=== PATIENT | male | born 1995 | race Caucasian/White ===

== ENCOUNTER 2017-04-22 09:36 | Emergency (ER) | payer OTHER ==
[~2017-04-22] VITALS: Ht 177.8 cm; Wt 79.0 kg
[2017-04-22] MEDS ORDERED: METOCLOPRAMIDE 10 MG TAB PO ONE (10:45)
[2017-04-22] MEDS ORDERED: ACETAMINOPHEN 325 MG TAB PO ONE (10:45)
[2017-04-22] MEDS ORDERED: MOBI7.5T10 PO (11:30)
[2017-04-22] MEDS ORDERED: ZANA4TAB PO (11:30)
--- NOTE | 2017-04-22 11:31 | REP ---
REASON: Trauma. COMPARISON: 11/18/2015. There is no change in the appearance of the bony architecture of the maxillofacial region. There is no acute fracture. Note is again made of a small mucous retention cyst and a small amount of mucosal thickening right maxillary sinus status quo. There is new soft tissue density in the posterior sphenoid sinus on the right. There is an unchanged small mucous retention cyst adherent to the lateral wall of the left maxillary sinus. No other abnormalities are noted. IMPRESSION: 1. No acute fracture. 2. Mucous retention cyst with mucosal thickening maxillary antra and sphenoid sinus posteriorly on the right as described above. Signed by Sonido Bruce DO 04/22/2017 12:07 P
--- NOTE | 2017-04-22 11:32 | REP ---
CT BRAIN WITHOUT CONTRAST: REASON: Trauma. COMPARISON: 11/18/2015 TECHNIQUE: 4.5 mm contiguous transaxial sections were obtained from the skull base to the cerebral convexities with thin cuts through the posterior fossa without the administration of intravenous contrast. FINDINGS: The ventricles and sulci are consistent with the patient's age. There are no extra-axial fluid collections. There is no mass effect. The deep cerebral white matter is consistent with the patient's age. The orbital and petrous structures , cerebellopontine angles, and posterior fossa are unremarkable. The sella turcica, cavernous, and paracavernous structures are essentially unremarkable. The visualized portions of the paranasal sinuses and mastoid air cells are clear. Images of the skull base show no gross abnormality. IMPRESSION: Essentially unremarkable CT examination of the brain. There has been no significant change from the prior exam. Signed by Sonido Bruce DO 04/22/2017 12:07 P
[2017-04-22] MEDS ORDERED: NORCO, ANEXSIA 5/325MG TABLET (HYDROcodone/ACETAMINOPHEN) PO ONE (11:45)
[2017-04-22 11:49] VITALS: BP 144/83
--- NOTE | 2017-04-22 11:49 | REP ---
REASON: Pain in the neck after trauma. COMPARISON: None. Vertebral body height and alignment is within normal limits. The disc spaces are symmetric and well maintained. The facet joints are well aligned bilaterally. There is no evidence of a cervical spine fracture. There is no evidence of abnormal paraspinal soft tissue swelling. IMPRESSION: Unremarkable exam. Signed by Sonido Bruce DO 04/22/2017 12:07 P
== END 2017-04-22 11:51 | disposition home or self-care (01) ==
LOC: M ED 11:03
DX: S00.90XA Unspecified superficial injury of unspecified part of head, initial encounter (principal); M54.2 Cervicalgia; S50.811A Abrasion of right forearm, initial encounter; Y04.0XXA Assault by unarmed brawl or fight, initial encounter; Y92.511 Restaurant or cafe as the place of occurrence of the external cause; Y93.89 Activity, other specified; Y99.9 Unspecified external cause status

== ENCOUNTER 2017-05-31 02:08 | Emergency (ER) | payer OTHER ==
[~2017-05-31] VITALS: Ht 175.3 cm; Wt 81.8 kg
[~2017-05-31 02:08] MED LIST: MOBI4TAB PO; ZANA4TAB PO
[2017-05-31 02:22] VITALS: BP 143/92
[2017-05-31] MEDS ORDERED: NORCOTAB PO (03:58)
[2017-05-31] MEDS ORDERED: NORCO 5/325MG TABLET (BULK FOR ED) PO ONE (04:00)
--- NOTE | 2017-05-31 04:18 | REP ---
Clinical: Trauma. Technique: AP, lateral, bilateral oblique views of the right foot. Findings: There is a comminuted crush injury involving the first distal phalanx/terminal tuft. The interphalangeal joint appears intact and maintained. No obvious subcutaneous emphysema or radiodense foreign body appreciated. Impression: Comminuted crush fracture involving the first toe distal phalanx. Signed by Monico Walsh MD 05/31/2017 04:10 A
== END 2017-05-31 04:20 | disposition home or self-care (01) ==
LOC: M ED 02:08
DX: S92.424A Nondisplaced fracture of distal phalanx of right great toe, initial encounter for closed fracture (principal); W23.1XXA Caught, crushed, jammed, or pinched between stationary objects, initial encounter; Y92.099 Unspecified place in other non-institutional residence as the place of occurrence of the external cause; Y93.89 Activity, other specified; Y99.9 Unspecified external cause status

== ENCOUNTER 2017-11-10 12:43 | Emergency (ER) | payer OTHER ==
[2017-11-10] MEDS: ONDANSETRON 4 MG ORAL DISINTEGRATING TAB (S0181) PO (14:14)
[2017-11-10] MEDS: PANTOPRAZOLE 40MG TAB (PROTONIX) PO (14:15)
[2017-11-10] MEDS: GI COCKTAIL 50ML BTL(HYOSCYAMINE/MAALOX/LIDOCAINE VISCOUS)(1:3:1) PO (14:15)
== END 2017-11-10 14:28 | disposition home or self-care (01) ==
LOC: M ED 12:43
DX: K29.20 Alcoholic gastritis without bleeding (principal); K27.9 Peptic ulcer, site unspecified, unspecified as acute or chronic, without hemorrhage or perforation
CPT/HCPCS: 99282

== ENCOUNTER 2018-02-16 06:13 | Emergency (ER) | payer OTHER ==
[2018-02-16 07:52] LABS: BASO % 0.4 % (0.0-1.0); EOS # 0.2 10^3/uL (0.0-0.50); EOS % 2.7 % (0.0-3.0); HEMOGLOBIN 15.7 g/dl (13.5-17.5); IMMATURE GRANULOCYTE % 0.4 % (0-3.0); LYMPH % 36.1 % (24.0-44.0); MEAN CORPUSCULAR HEMOGLOBIN 29.7 pg (27.0-33.0); MEAN CORPUSCULAR HGB CONC 34.9 g/dl (32.0-36.5); MEAN CORPUSCULAR VOLUME 85.1 fl (80.0-96.0); MONO # 0.5 10^3/uL (0.0-0.8); MONO % 8.9 % (0.0-5.0); NEUTROPHILS # 2.9 10^3/uL (1.8-7.7); NEUTROPHILS % 51.5 % (36.0-66.0); PLATELET COUNT, AUTOMATED 134 10^3/uL (150-450); RED BLOOD COUNT 5.29 10^6/uL (4.30-6.10); RED CELL DISTRIBUTION WIDTH 12.8 % (11.5-14.5); WHITE BLOOD COUNT 5.6 10^3/uL (4.0-10.0)
[2018-02-16 08:18] LABS: ANION GAP 5 MEQ/L (8-16); BLOOD UREA NITROGEN 17 MG/DL (7-18); CALCIUM LEVEL 8.5 MG/DL (8.5-10.1); CARBON DIOXIDE LEVEL 29 MEQ/L (21-32); CHLORIDE LEVEL 108 MEQ/L (98-107); CREATININE FOR GFR 0.96 MG/DL (0.70-1.30); FREE THYROXINE INDEX 3.1 % (1.4-3.8); GLOMERULAR FILTRATION RATE > 60.0 (>60); GLUCOSE, FASTING 83 MG/DL (70-100); MAGNESIUM LEVEL 2.3 MG/DL (1.8-2.4); POTASSIUM SERUM 3.6 MEQ/L (3.5-5.1); SODIUM LEVEL 142 MEQ/L (136-145); T UPTAKE 37 % (33-40); THYROXINE (T4) 8.4 UG/DL (4.5-12.0)
== END 2018-02-16 09:21 | disposition home or self-care (01) ==
LOC: M ED 06:13
DX: R00.2 Palpitations (principal); F14.10 Cocaine abuse, uncomplicated
CPT/HCPCS: 71046

== ENCOUNTER 2018-07-14 14:12 | Emergency (ER) | payer OTHER, SELFPAY ==
[2018-07-14] MEDS ORDERED: LIDOCAINE 1% MDV 20ML VIAL As Ordered ×2 (15:42)
[2018-07-14] MEDS: cefTRIAXone SOD 1 GM VIAL (J0696) IM ×2 (15:48)
[2018-07-14] MEDS: AZITHROMYCIN 250 MG TAB PO ×2 (15:48)
[2018-07-14 18:07] LABS: CHLAMYDIA DNA AMPLIFICATION POSITIVE (NEGATIVE); GC DNA AMPLIFICATION NEGATIVE (NEGATIVE)
== END 2018-07-14 16:09 | disposition home or self-care (01) ==
LOC: M ED 14:12
DX: Z20.2 Contact with and (suspected) exposure to infections with a predominantly sexual mode of transmission (principal); A74.9 Chlamydial infection, unspecified
CPT/HCPCS: J0696